=== PATIENT | male | born 1980 | race Caucasian/White ===

== ENCOUNTER → 2017-08-09 11:18 | Outpatient (CLI) | payer OTHER, MEDICAID, SELFPAY ==
[2017-08-09 12:06] LABS: Add Manual Diff / Slide Review NO; Basophils Percent Auto 0.8 % (0-2); Eosinophils Percent Auto 5.4 % (2-4); Hematocrit 46.7 % (41-53); Lymphocytes Percent Auto 29.4 % (25-40); Mean Corpuscular HGB Conc 34.2 % (30-36); Mean Corpuscular Hemoglobin 30.1 PG (26-34); Mean Corpuscular Volume 87.9 fL (80-100); Monocytes Percent Auto 10.1 % (3-14); Neutrophils Absolute Auto 3500 /uL (3000-5900); Neutrophils Percent Auto 54.3 % (50-75); Platelet Count 261 X10^3/uL (150-400); Red Blood Cell Count 5.32 X10^6/uL (4.5-5.9); Red Cell Distribution Width 13.1 % (11.6-14.8); White Blood Cell Count 6.4 X10^3/uL (4.5-11.0)
[2017-08-09 12:37] LABS: Alanine Aminotransferase 65 IU/L (21-72); Albumin 4.6 g/dL (3.5-5.0); Albumin Globulin Ratio 1.4 (1.0-2.8); Alkaline Phosphatase 53 U/L (38-126); Aspartate Aminotransferase 29 IU/L (17-59); BUN Creatinine Ratio 17.5 (6-22); Bilirubin Total 0.5 mg/dL (0.2-1.3); Blood Urea Nitrogen 14 mg/dL (9-20); Calcium 9.7 mg/dL (8.4-10.2); Carbon Dioxide 26 mmol/L (22-32); Chloride 103 mmol/L (98-107); Estimated Glomerular Filt Rate > 60.0 mL/min (>60); Globulin 3.2 g/dL (1.7-4.1); Glucose 101 mg/dL (70-100); HEMOLYSIS < 15 (0-50); Potassium 4.7 mmol/L (3.4-5.1); Sodium 142 mmol/L (137-145); Total Protein 7.8 g/dL (6.3-8.2)
[2017-08-09 13:04] LABS: Thyroid Stimulating Hormone 2.65 uIU/mL (0.47-4.68)
[2017-08-09 14:56] LABS: Hepatitis B Surface Antigen NEGATIVE s/c (NEGATIVE)
[2017-08-09 15:35] LABS: Hep C Virus Ab w/Reflex Quant NEGATIVE s/c (NEGATIVE)
[2017-08-11 15:35] LABS: Hepatitis B Core IgM Nonreactive (Nonreactive)
== END ==
PROVIDERS: Visit Provider Physician Assistant
DX: R10.9 Unspecified abdominal pain (principal); R11.0 Nausea; R19.4 Change in bowel habit; R61 Generalized hyperhidrosis; R68.81 Early satiety; Z20.2 Contact with and (suspected) exposure to infections with a predominantly sexual mode of transmission; Z87.898 Personal history of other specified conditions
CPT/HCPCS: 36415; 80053; 84443; 85025; 86705; 86803; 87340

== ENCOUNTER → 2017-08-17 11:16 | Outpatient (CLI) | payer OTHER, MEDICAID, SELFPAY ==
--- NOTE | 2017-08-17 11:17 | DI.US.S_ITS ---
PROCEDURE: US ABDOMEN COMPLETE INDICATIONS: Right upper quadrant pain - radiates into ribs and groin TECHNIQUE: Real-time scanning was performed of the abdominal and retroperitoneal organs, with image documentation. COMPARISON: None. FINDINGS: Liver: Liver is 19.5 cm in size and hyperechoic in echotexture. Gallbladder: Gallbladder is clear with normal wall thickness. Biliary ducts: Intrahepatic bile ducts are non-dilated. Extrahepatic bile duct caliber measures 7 mm. Normal is 6-7 mm or less in diameter, or 10 mm or less post-cholecystectomy. Pancreas: Visualized portions of the pancreas are sonographically normal. Spleen: Spleen is normal in size and homogeneous in echotexture. Kidneys: Kidneys are normal in size and echotexture. Right kidney measures 12.8 cm long; left kidney measures 12.4 cm long. No hydronephrosis or nephrolithiasis. No solid masses. There is a cortical cyst in the anterior superior pole of the left kidney measuring 17 x 24 x 25 mm. Aorta: Visualized aorta is normal in caliber at less than 3 cm. Iliacs: Iliac vessels are obscured by bowel gas. IVC: Intrahepatic inferior vena cava is patent. Miscellaneous: No free abdominal fluid. A there is no sonographic finding in the area of right periumbilical pain. IMPRESSION: 1. Borderline hepatomegaly with steatosis. 2. No apparent biliary abnormality. 3. 2.5 cm cyst upper pole left kidney. Dictated by: Fred Cody M.D. on 08/17/2017 at 13:33 Approved by: Fred Cody M.D. on 08/17/2017 at 13:36
== END ==
PROVIDERS: Visit Provider Physician Assistant
DX: K76.0 Fatty (change of) liver, not elsewhere classified (principal); R10.11 Right upper quadrant pain; N28.1 Cyst of kidney, acquired; R11.0 Nausea; R68.81 Early satiety; R19.4 Change in bowel habit
CPT/HCPCS: 76700

== ENCOUNTER → 2018-01-02 13:18 | Outpatient (CLI) | payer OTHER, MEDICAID, SELFPAY ==
[2018-01-02 13:45] LABS: Alanine Aminotransferase 78 IU/L (21-72); Aspartate Aminotransferase 45 IU/L (17-59)
[2018-01-02 14:16] LABS: Thyroid Stimulating Hormone 2.81 uIU/mL (0.47-4.68)
== END ==
PROVIDERS: Visit Provider Physician Assistant
DX: E03.9 Hypothyroidism, unspecified (principal)
CPT/HCPCS: 36415; 84443; 84450; 84460

== ENCOUNTER 2018-03-08 13:26 | Day surgery (SDC) | payer OTHER, MEDICAID, SELFPAY ==
[2018-03-06 07:53] VITALS: BMI 34.7
[2018-03-08] VITALS (7 sets, daily range): BP systolic 141–154; BP diastolic 83–105; PULSE 84–110; RESP 11–23; TEMP 36.7–37.2; O2SAT 95–99; BMI 33.5
[2018-03-08] MEDS: LACTATED RINGERS 1,000 ML 42 ML IV (14:15)
[2018-03-08] MEDS: CEFAZOLIN 2 GM/100 ML FROZ.PIGGY IV (14:36)
--- NOTE | 2018-03-08 15:04 | SUR.OPER ---
Supine on padded OR bed, head on pillow, arms secured on padded arm boards at <90 degrees abduction, legs uncrossed, safety belt at thigh, tape over blanket over lower legs.
[2018-03-08] MEDS: LIDOCAINE 1% W/EPI INJ 20 ML INJ (15:11)
[2018-03-08] MEDS: CEFAZOLIN 1 GM VIAL IV (15:11)
[2018-03-08] MEDS: BUPIVACAINE 0.5% (PF) VIAL 30 ML INJ (15:12)
--- NOTE | 2018-03-08 15:33 | PM.OP.1 ---
Operative Date/Time/Diagnoses Date of procedure: 03/08/18 Time of procedure: 15:33 Post-op diagnosis: same Procedure & Clinicians Procedure: Right inguinal hernia repair Same procedure as scheduled: Yes Indications: Painful right inguinal hernia Surgeon: Morelia Juarez Click Yes if Unassisted: Yes Anesthesia Type: General (Dr. Forbes) and Local Operative Notes Findings: Moderate to large indirect right inguinal hernia with a large lipoma of the cord Closure Type: primary Specimen(s): none sent Implants & Drains: Large Pro Loop mesh implant Estimated Blood Loss (mL): 5 Procedure in detail: After obtaining informed consent the patient was brought to the operating room and placed in the supine position on the operating table. Following successful induction of general endotracheal anesthesia, appropriate padding of all bony prominences, and a placement of appropriate monitors, the left groin is prepped and draped in a standard surgical fashion. A timeout was held per protocol. We began the procedure by infiltrating a mixture of local anesthetics medial to the anterior superior iliac spine on the right. Following this, an incision was fashioned in the right groin superior and lateral to the left pubic tubercle. This area was infiltrated with local anesthetic to create a field block. A skin incision was created here and carried down through the skin and subcutaneous tissue to reveal Ed's fascia below. Ed's fascia was divided sharply revealing the external oblique aponeurosis below. More local anesthetic was infiltrated in the aponeurosis and it was opened in the direction of its fibers. The spermatic cord and its contents were surrounded and retracted gently using a [place] drain. The hernia sac was identified in the superior medial position and carefully dissected free from the cord structures. This was carefully placed back into the abdominal cavity without injury. We noted a large lipoma of the cord that was gently dissected free from the cord proximally and distally. It was removed. A large portion of PROloop mesh was chosen for the repair. The plug was soaked in Ancef solution and deployed into the defect in the internal ring. This was sewn into place with interrupted Vicryl sutures in 2 positions. The overlying mesh layer was sewn to the pubic tubercle with an air knot of Vicryl suture. The lateral leaflets were then carefully placed around the spermatic cord and sewn together with another suture. Tags of the overlying mesh were then tucked under the external oblique aponeurosis. The wound was checked for hemostasis and irrigated with Ancef-containing solution. The edges of the external oblique aponeurosis were approximated and closed with a running Vicryl suture. The wound was irrigated once again and Ed's fascia was closed with a running suture. Monocryl sutures were placed in the skin. All sponge, needle, and instrument counts were correct at the conclusion of the case. The patient was allowed to awaken from anesthesia without difficulty and taken to the post anesthesia care unit in good condition. Complications: none Condition: stable Disposition: PACU Plan for aftercare: 1. Discharge to home 2. Follow up with me in 2 weeks
[2018-03-08] MEDS: MEPERIDINE 50 MG/ML 25 MG IV (15:42)
[2018-03-08] MEDS: fentaNYL 100 MCG/2 ML INJ 50 MCG IV (15:54)
[2018-03-08] MEDS: OXYCODONE/ACETAMINOPHEN 5/325 TABLET 1 TAB PO (16:32)
== END 2018-03-08 16:51 | disposition home or self-care (01) ==
PROVIDERS: PCP Physician Assistant; Visit Provider Surgery
PROC: (CPT 49505; principal; 2018-03-08 14:45)
DX: K40.90 Unilateral inguinal hernia, without obstruction or gangrene, not specified as recurrent (principal); Z87.891 Personal history of nicotine dependence; E03.9 Hypothyroidism, unspecified; F90.9 Attention-deficit hyperactivity disorder, unspecified type; D17.6 Benign lipomatous neoplasm of spermatic cord
CPT/HCPCS: 49505; 93005; C1781; J0690; J2175; J2250; J3010

== ENCOUNTER → 2018-08-18 15:38 | Outpatient (CLI) | payer OTHER, MEDICAID, SELFPAY ==
[2018-08-18 18:13] LABS: Alanine Aminotransferase 47 IU/L (21-72); Aspartate Aminotransferase 28 IU/L (17-59); Cholesterol 169 mg/dL (140-199); HDL Cholesterol 37 mg/dL (40-60); LDL Cholesterol Calculated 114 mg/dL (<100); Triglycerides 92 mg/dL (35-150)
[2018-08-18 18:44] LABS: Thyroid Stimulating Hormone 2.67 uIU/mL (0.47-4.68)
== END ==
PROVIDERS: PCP Physician Assistant; Visit Provider Physician Assistant
DX: E03.9 Hypothyroidism, unspecified (principal); K76.0 Fatty (change of) liver, not elsewhere classified; R74.8 Abnormal levels of other serum enzymes
CPT/HCPCS: 36415; 80061; 84443; 84450; 84460